=== PATIENT | male | born 1985 | race Caucasian/White ===

== ENCOUNTER 2022-09-30 07:01 | Day surgery (SDC) | payer BC, SELFPAY ==
[2022-09-30] VITALS (11 sets, daily range): BP systolic 127–151; BP diastolic 63–89; PULSE 55–63; RESP 17–20; TEMP 36.2–43; O2SAT 98–100; BMI 29.9
[2022-09-30 07:36] LABS: Basophils # 0.1 K/mm3 (0-0.2); Basophils % 0.8 % (0.1-2.0); Eosinophils # 0.1 K/mm3 (0.0-0.4); Eosinophils % 1.1 % (0.1-12.0); Hematocrit 47.5 % (42.0-52.0); Hemoglobin 16.1 g/dL (14.1-18.0); Lymphocytes # 2.6 K/mm3 (0.7-4.5); Lymphocytes % 44.5 % (10-50); Mean Corpuscular HGB Conc 33.9 g/dL (31.8-35.4); Mean Corpuscular Hemoglobin 31.3 pg (27.0-31.2); Mean Corpuscular Volume 92.3 fl (80-94); Mean Platelet Volume 9.1 fl (7.4-10.4); Monocytes # 0.4 K/mm3 (0.1-1.0); Monocytes % 6.3 % (1.7-9.3); Neutrophils # 2.7 K/mm3 (1.8-7.8); Neutrophils % 47.3 % (37.0-80.0); Platelet Count 164 K/mm3 (142-424); Red Blood Count 5.15 M/mm3 (4.60-6.20); Red Cell Distribution Width 13.4 % (11.5-17.5); White Blood Count 5.7 K/mm3 (4.8-10.8)
--- NOTE | 2022-09-30 07:36 | P.PN_ITS ---
[facility] Disclaimer: The information contained in this section may have been updated after the patient was seen, as this information can be updated by other users. Medical History No significant past medical history Surgical History No significant past surgical history Family History Other No significant family history Social History Smoking Status: Never smoker second hand exposure: No alcohol intake: never substance use type: denies use current occupational status: employed Travel in the last 8 weeks: Inside the [place] household members: family housing: house lives independently: No education level: master's degree service: No caffeine: Yes special say needs: No agree to transfusion: No do you feel safe at home: Yes victim of physical abuse: No victim of emotional abuse: No victim of sexual abuse: No would you like helpful sources: No [facility] Anesthesia Checklist Patient Identification Patient Identification: Arm Band and Verbal (Name & ) Structural Data Admitted From: Home Planned Operative Procedure/s: Vasectomy Consent for Planned Operative Procedure(s) Verified: Yes NPO Status Verified Time NPO: 00:00 Additional verifications Anesthesia Reactions: No Hx Blood Transfusions: No Blood Transfusion Reaction: No Airway Assessment C-Spine Mobility Assessed: Yes TMJ Mobility Assessed: Yes Dentition: Good Dentition Neurological Assessment Level of Consciousness: Awake Hx Seizures: No Numbness or tingling in extremities: No Anesthesia Plan Anesthesia Risk discussed: Yes Anesthesia Plan: Verified ASA Class: I Anesthesia Type: General
[2022-09-30 07:42] LABS: Chloride 102 mmol/L (98-107); Potassium 3.9 mmoL/L (3.5-5.1); Sodium 139 mmol/L (136-145)
[2022-09-30 07:45] LABS: Anion Gap 9.9 mEq/L (5-15); Blood Urea Nitrogen 20 mg/dl (9-20); Carbon Dioxide 31 mmol/L (22.0-30.0); Creatinine Clearance Estimated 156 mL/min (50-200); Estimated Glomerular Filt Rate 84 ml/min (>60); GFR (African American) 102 ML/MIN (>60)
[2022-09-30 07:46] LABS: Glucose 88 mg/dl (74-100)
--- NOTE | 2022-09-30 08:53 | EXP.OP.NOTE ---
Date of procedure: 09/30/22 Pre-op Diagnosis:: Desire for sterility Post-op Diagnosis:: Same Procedure performed:: Bilateral vasectomy Surgeon:: David Dyer MD Anesthesia: local and LMA Estimated blood loss (mL): 5 Operative findings:: Bilateral vas deferens partially excised with additional suture ligation and cautery Operative note:: After informed consent was obtained the patient was taken to the operating room and placed in the supine position.? Monitored anesthesia care ensued.? His groin/scrotal region was prepped and draped in a sterile fashion.? The left vas deferens was identified.? After infiltration local anesthetic an overlying incision was made in the scrotum.? The underlying subcutaneous tissue/fascial margin was excised with a combination of blunt dissection, sharp dissection, and electrocautery.? A portion of the vas deferens was excised with the remaining ends being suture-ligated (chromic) and cauterized.? The right vas deferens was treated in a similar manner.? The overlying skin was closed with interrupted 4-0 Monocryl.? Dressings were applied and the patient was transferred to recovery in stable condition. Condition: stable Disposition: PACU Specimens:: Left vas deferens Right vas deferens Complications:: No immediate
--- NOTE | 2022-09-30 09:05 | EXP.ANES.I ---
[facility] Anesthesia Record Part I Anesthesia Record I Intake, IV Amount: 600 Estimated blood loss (mL): 1 Urine output (mL): 0 Blood Products used (#): none Blood Pressure: 151/89 SaO2: 98 Pulse Rate: 59 Respiratory Rate: 20 Temperature: 97.2 F Patient is:: Drowsy and Stable Stable to PACU at:: 09:01
[2022-10-01 15:39] VITALS: BP 129/79; PULSE 56; TEMP 36.3
--- NOTE | 2022-10-01 15:39 | P.PNANES_ITS ---
[facility] Anesthesia Record Part II Anesthesia Record Part II Discharge Time: 09:31 Destination: Surgical Day Care (OP Surgery) PACU nurse assessment reviewed?: Yes Patient Condition:: Good Anesthesia Complications:: None Swallowing reflex intact?: Yes Cyanosis?: No Blood Pressure: 129/79 Pulse Rate: 56 Temperature: 97.4 F Mental Status: Alert & Oriented Pain level:: 0 Nausea and/or vomitting:: None Intake, IV Amount: 0
== END 2022-09-30 10:05 | disposition home or self-care (01) ==
PROVIDERS: PCP Internal Medicine Adolescent Medicine; Visit Provider Surgery
PROC: (CPT 55250; principal; 2022-09-30 08:30)
DX: Z30.2 Encounter for sterilization (principal)
CPT/HCPCS: 55250; 80048; 85025; 96374; J2405

== ENCOUNTER → 2022-12-06 07:59 | Outpatient (CLI) | payer BC, SELFPAY ==
[2022-12-06 09:11] LABS: Semen Viscosity Stringy (Normal); Volume,Semen 3.8 ml (2.0-5.0)
[2022-12-06 09:12] LABS: Motility Quality Immotile Sperm (Mod-Rapid); Sperm Count 0 mil/mm3 (20-160); Sperm Motility 0 % (50-90); WBCs,Semen Negative
== END ==
PROVIDERS: PCP Internal Medicine Adolescent Medicine; Visit Provider Surgery
DX: Z30.09 Encounter for other general counseling and advice on contraception (principal)
CPT/HCPCS: 89320

== ENCOUNTER 2024-04-12 16:15 | Emergency (ER) | payer BC, SELFPAY ==
--- NOTE | 2024-04-12 16:19 | XR_ITS ---
PROCEDURE INFORMATION: Exam: XR Right Hand Exam date and time: 04/12/2024 4:29 PM Age: 38 years old Clinical indication: Injury or trauma; Other: Basketball accident; Dislocation; Severity not specified; Right; Little finger; Additional info: Injury to pinky finger TECHNIQUE: Imaging protocol: Radiologic exam of the right hand. Views: 3 or more views. COMPARISON: No relevant prior studies available. FINDINGS: Bones/joints: See Soft tissues finding. Soft tissues: There is some soft tissue swelling about the 5th digit without acute osseous injury identified. IMPRESSION: There is some soft tissue swelling about the 5th digit without acute osseous injury identified.
[2024-04-12 16:33] VITALS: BP 124/72; PULSE 65; RESP 20; TEMP 36.7; O2SAT 98; BMI 29.2
--- NOTE | 2024-04-12 16:34 | EXP.UTC ---
Discharge Plan Disposition Patient Disposition: Home, Self-Care Condition: Good Prescriptions Prescriptions: No Action No Known Home Medications Referrals Follow up/Referrals: Terrance Steiner MD [Primary Care Provider] - See instructions Activity Restrictions/Add. Instructions Additional Instructions/Restrictions: Follow up with [facility] if no improvement *RICE, Rest the extremity, Ice 15-20 minutes 3-4 times daily, Compress- wear the noelle wrap as discussed as much as possible to help reduce swelling and pain, Elevate the extremity when at rest *Finger splint is for support and help control swelling, use it except in the shower. Be sure that is not to tight but not to loose either *Elevate when resting? *Ibuprofen 600-800mg every 6-8 hours as needed for pain an inflammation. If need something more can take Tylenol in between doses of Ibuprofen to help Immediately follow up with your family doctor for new or worsening of symptoms, or no noticeable improvement over the next 3-5 days Clinical Impressions Clinical Impression: Finger injury Qualifiers: Encounter type: initial encounter Laterality: right Qualified Code(s): S69.91XA - Unspecified injury of right wrist, hand and finger(s), initial encounter Instructions Patient Instructions: How To Perform RICE (Rest, Ice, Compress, Elevate), Ibuprofen Print Language Print Language: Lao Discharge ED Provider: Lucy Ng [facility] [place] HPI General Stated complaint: AO 04/11/24 2100 injury little finger right hand Time Seen by Provider: 04/12/24 16:34 History of Present Illness Provider Complaint: Patient states that he was playing basketball last night and he jammed his right little finger on the back of another player and noticed it looked like it was dislocated so he pulled on it and thought he had it back in place but after getting home he bent his finger and it was locked downward and he pulled it again and taped it to his ring finger States today it was swollen and blue and hurts when he tries to move it so he came in to get it checked Related Data Home Medications ?Medication ?Instructions ?Recorded ?Confirmed No Known Home Medications 09/28/22 04/12/24 Allergies Allergy/AdvReac Type Severity Reaction Status Date / Time No Known Allergies Allergy Verified 10/08/22 11:07 [facility] Disclaimer: The information contained in this section may have been updated after the patient was seen, as this information can be updated by other users. Medical History (Updated 04/12/24 @ 17:11 by Lucy Ng APRN) No significant past medical history Surgical History (Updated 10/08/22 @ 11:07 by MILTON Schuster) History of vasectomy No significant past surgical history Family History Other No significant family history Social History Smoking Status: Never smoker second hand exposure: No alcohol intake: never substance use type: denies use current occupational status: employed Travel in the last 8 weeks: Inside the [place] household members: family housing: house lives independently: No education level: master's degree service: No caffeine: Yes special say needs: No agree to transfusion: No do you feel safe at home: Yes victim of physical abuse: No victim of emotional abuse: No victim of sexual abuse: No would you like helpful sources: No ROS Obtained: Yes All systems reviewed & no additional complaints except as documented and Yes Systems reviewed as appropriate & no additional complaints except as documented Constitutional Constitutional: Reports system reviewed and no additional complaints, except as documented and Reports as per HPI Cardiovascular Cardiovascular: Reports system reviewed and no additional complaints, except as documented and Reports as per HPI Respiratory Respiratory: Reports system reviewed and no additional complaints, except as documented and Reports as per HPI Musculoskeletal Musculoskeletal: Reports system reviewed and no additional complaints, except as documented, Reports as per HPI and Reports other (pain, swelling and bruising noted pain with movement) Physical Exam General General appearance: alert and in no apparent distress Respiratory Respiratory exam: Present normal lung sounds bilaterally; Absent respiratory distress or wheezes Cardiovascular Cardiovascular exam: Present regular rate, normal rhythm and normal heart sounds Expanded Upper Extremity Exam Right: Hand L/R back image: 1. pain, swelling and bruising noted Neurological Exam Neurological exam: Present alert, oriented X3 and normal gait Medical Decision Making Medical Records Screening: Per USPSTF and CDC recommendations, given the prevalence of disease in our region, it is our hospital?s policy to screen for HIV and viral Hepatitis for all patients aged 18 and over and those with ongoing risk factors. Og Inquiry Pt receiving controlled substance: No Og was queried for this patient: No Orders (Tests/Meds): ORDERS Category Date Time Status XR hand RT min 3V Stat Exams 04/12/24 16:19 Ordered Radiology Data #1: Image(s): Hand
[2024-04-12 17:19] VITALS: BP 124/72; PULSE 65; RESP 20; TEMP 36.7
== END 2024-04-12 17:20 | disposition home or self-care (01) ==
PROVIDERS: Emergency Provider Nurse Practitioner; PCP Internal Medicine Adolescent Medicine
DX: S69.91XA Unspecified injury of right wrist, hand and finger(s), initial encounter (principal); W23.0XXA Caught, crushed, jammed, or pinched between moving objects, initial encounter
CPT/HCPCS: 73130; 99213; G0381

== ENCOUNTER 2024-11-14 10:20 | Outpatient (CLI) | payer BC, SELFPAY ==
--- NOTE | 2024-11-14 10:23 | US_ITS ---
FINAL REPORT TECHNIQUE: Sonographic images of the abdomen were obtained in all four quadrants. CLINICAL HISTORY: DR ? INTRAABD MASS-- POSS CAUSING ENLARGED VEIN IN LEG COMPARISON: None FINDINGS: LIVER: Several hyperechoic liver lesions are nonspecific. Largest measuring 2 cm. Portal vein is patent with normal directional flow. GALLBLADDER: No gallstones. No pericholecystic fluid collection or gallbladder wall thickening. The common duct measures 3 mm. This is within normal limits for age. PANCREAS: Obscured. RIGHT KIDNEY: 12.9 cm. No hydronephrosis, mass or stone. LEFT KIDNEY: 12.8 cm. No hydronephrosis, mass or stone. SPLEEN: 11.8 cm. No focal splenic lesion. AORTA/IVC: No abdominal aortic aneurysm. Visualized IVC within normal limits. OTHER: No ascites. IMPRESSION: Several hyperechoic liver lesions, nonspecific and could represent hemangiomas. Consider MRI liver protocol in a nonemergent setting. Otherwise, unremarkable exam. Reviewed, Interpreted and Dictated by Mayuri Hayes MD Transcribed by Britta Bonilla Authenticated and [facility]
== END 2024-11-14 23:59 | disposition home or self-care (01) ==
LOC: RAD 10:21
PROVIDERS: PCP Internal Medicine Adolescent Medicine; Visit Provider Internal Medicine Adolescent Medicine
DX: R93.2 Abnormal findings on diagnostic imaging of liver and biliary tract (principal); I83.90 Asymptomatic varicose veins of unspecified lower extremity
CPT/HCPCS: 76700